=== PATIENT | male | born 1985 | race Caucasian/White ===

== ENCOUNTER 2019-05-01 23:05 | Emergency (ER) | payer SELFPAY ==
[~2019-05-01] VITALS: Ht 182.9 cm; Wt 96.0 kg
[2019-05-02] MEDS ORDERED: HYDROCODONE/ACETAMINOPHEN 5/325MG TABLET PO ONE (01:15)
[2019-05-02 01:57] VITALS: BP 140/90
== END 2019-05-02 01:58 | disposition home or self-care (01) ==
LOC: ER 23:05 → EDBD 23:05 → ER 05-02 01:58
DX: H72.91 Unspecified perforation of tympanic membrane, right ear (principal); F11.10 Opioid abuse, uncomplicated; Z98.890 Other specified postprocedural states
CPT/HCPCS: 99282